=== PATIENT | male | born 1980 | race Caucasian/White ===

== ENCOUNTER → 2021-12-31 11:50 | Outpatient (BNVA) | payer SELFPAY | PROVIDERS: PCP Internal Medicine; Visit Provider Internal Medicine | DX: Z02.79 Encounter for issue of other medical certificate (principal) ==

== ENCOUNTER 2024-09-17 15:49 | Outpatient (AMB) | payer OTHER, SELFPAY ==
--- NOTE | 2024-09-17 15:55 | AM.OFFWIN_ITS ---
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 tooth abscess Patient Tobacco Use Status: Former Tobacco user Allergies No Known Allergies Allergy (Verified 09/17/24 15:56) HPI HPI Comments History of Present Illness Details He presents with possible tooth abscess R side dsmall nump with bump and swelling Pain level is 2/10 Pressure makes worse No fever or chills Nothing taken for it No drainage No abscess in past PFSH Social History Patient Tobacco Use Status: Former Tobacco user Review of Systems Const Denies chills and Denies fever(s) ENT Denies otalgia, Denies nose pain, Denies sinus pain and Reports other (gum pain) Card Denies chest pain Resp Denies cough Skin/Breast Denies other (denies facial edema or swelling) Physical Exam Vital Signs: Last Vital Signs Temp 97.9 F 09/17/24 15:56 Pulse 82 09/17/24 15:56 Resp 15 09/17/24 15:56 BP 102/60 09/17/24 15:56 Pulse Ox 97 09/17/24 15:56 Oxygen Delivery Method Room Air 09/17/24 15:56 BMI result Body Mass Index 30.4 General: Non-toxic, NAD. Speaking full sentences. Skin: Warm dry throughout. No facial or lip edema Eye: EOMI HENT: to the R of frenulum under upper lip pt has indurated approx 0.5cm x 0.5cm mass that is non-tender to palpation. There is no fluctuance. Slight erythema of gingivae surrounding. No drainage. No dental caries. Airway patent. Uvula midline. No pharyngeal erythema or edema. No [employer]. Respiratory: No respiratory distress Neurology: Alert. No aphasia or facial droop. Gait without abnormality Psych: Good mood and affect Assessment & Plan Assessment & Plan (1) Mass of gingiva: Code(s): K06.8 - Other specified disorders of gingiva and edentulous alveolar ridge Plan: Pt seen and evaluated No drainble abscess Told pt to take amoxicillin and use moist warm compress If area becomes fluctuant, he will come back for drainage If not resolved, he will follow up with dentist Will call with any concerns Medications: New amoxicillin 875 mg PO BID 14 tabs 0RF 7 days Coding Level of Care Code New Pt Level 3 (36510) Diagnoses Mass of gingiva K06.8
[2024-09-17 15:56] VITALS: BP 102/60; PULSE 82; RESP 15; TEMP 36.6; O2SAT 97; BMI 30.4
== END 2024-09-17 16:11 | disposition home or self-care (01) ==
PROVIDERS: Visit Provider Physician Assistant
DX: K06.8 Other specified disorders of gingiva and edentulous alveolar ridge (principal)

== ENCOUNTER → 2024-09-17 15:49 | Outpatient (BNVA) | payer OTHER, SELFPAY | PROVIDERS: Visit Provider Physician Assistant ==